=== PATIENT | female | born 1990 | race Caucasian/White ===

== ENCOUNTER 2023-08-20 09:39 | Outpatient (RCR) | payer OTHER, SELFPAY | END 2023-09-04 15:21 | disposition home or self-care (01) | LOC: PT 09:39 | PROVIDERS: PCP Family Medicine; Visit Provider Family Medicine | DX: M54.2 Cervicalgia (principal); M25.519 Pain in unspecified shoulder | CPT/HCPCS: 97010; 97014; 97035; 97140; 97162 ==

== ENCOUNTER 2023-10-15 14:56 | Outpatient (REF) | payer OTHER, SELFPAY ==
--- OUTSIDE RECORDS SUMMARY | 2023-11-20 15:05 | XMS_ITS | CCD ---
Author Organization [facility] ion [facility] Care Team Providers Care Mail Order Clerk Name Role Phone KESHIA ROWLAND Admitting Unavailable KESHIA ROWLAND Attending Unavailable ZICHRISTINE, DR TOSIN Hernandez Consulting Unavailable NADERER, DR OH Fam Primary Care Unavailable KESHIA ROWLAND Consulting Unavailable GALEN, DR OH Fam Attending Unavailable NADERER, DR OH Fam Admitting Unavailable NADERER, DR OH Fam Primary Care Unavailable NADERER, DR OH Fam Consulting Unavailable Oh Aaron MD Primary Care Provider ALFREDO EVANGELISTA Attending Unavailable NADEREDavid, [place] Referring Unavailable NADERER, OH Primary Care Unavailable ALFREDO EVANGELISTA Attending Unavailable ALFREDO EVANGELISTA Referring Unavailable NADERER, OH Primary Care Unavailable ALFREDO EVANGELISTA Referring Unavailable NADEREDavid, [place] Primary Care Unavailable JARODEREDavid, [place] Attending Unavailable NADERER, OH Attending Unavailable NADERER, OH Attending Unavailable NADERER, [place] Attending Unavailable DO Dae Montesinos Primary Care Provider MD Oh Aaron Attending Provider [phone] Dae Montesinos Primary Care Unavailable Oh Aaron Attending Unavailable NadereOh hernandez Admitting Unavailable NADERER, [place] Referring Unavailable NADEREDavid, [place] Primary Care Unavailable ALFREDO EVANGELISTA Referring Unavailable NADERER, OH Primary Care Unavailable NADEREDavid, [place] Referring Unavailable OH AARON Primary Care Unavailable Allergies Allergy Classification Reported Allergen(s) Allergy Type Date of Onset Reaction(s) Facility (4 sources) Penicillins; Translations: [PENICILLINS] Drug allergy (disorder) 4 [facility] (1 source) strawberry allergenic extract Drug Allergy 4 [facility] (1 source) Penicillins Propensity to adverse reactions 4 Hives [facility] (3 sources) Adhesive agent; Translations: [ADHESIVE] Propensity to adverse reactions to drug (disorder) 0 [facility] Medications Current Medications Medication Drug Class(es) Dates Sig (Normalized) Sig (Original) [id number] 200 actuat albuterol 0.09 mg/actuat metered dose inhaler (1 source) beta2-Adrenergi c Agonist take 2 puff(s) by inhalation every four hours for wheezing albuterol HFA 90 mcg/act inhaler Inhale 2 puffs every 4 (four) hours if needed for wheezing 0 Active amphetamine aspartate 7.5 mg / amphetamine sulfate 7.5 mg / dextroamphetamine saccharate 7.5 mg / dextroamphetamine sulfate 7.5 mg oral tablet (2 sources) Central Nervous System Stimulant Start: 03-27-2023 End: 04-01-2023 take 1 tablet by mouth in the morning amphetamine-dextroam phetamine (Adderall) 30 MG tablet Indications: ADD (attention deficit disorder) without hyperactivity Take 1 tablet (30 mg) by mouth in the morning and 1 tablet (30 mg) before bedtime. 60 tablet 0 04/01/2023 Active cholecalciferol 0.05 mg oral tablet (1 source) Vitamin D take 1 tablet by mouth in the morning cholecalciferol (Vitamin D-3) 50 MCG (1999 UT) tablet Take 2,000 Units by mouth in the morning. 0 Active Problems Active Problems Problem Classification Problem Date Documented Da te Episodic/Chronic Disorders usually diagnosed in infancy, childhood, or adolescence (2 sources) Attention deficit hyperactivity disorder, predominantly inattentive type; Translations: [Other specified behavioral and emotional disorders with onset usually occurring in childhood and adolescence] Onset: 01-31-2023 04-01-2023 Chronic Nonmalignant breast conditions (2 sources) Unspecified lump in the left breast, upper inner quadrant; Translations: [Unspecified lump in the left breast, upper inner quadrant] Onset: 09-04-2023 Episodic Nutritional deficiencies (1 source) Vitamin D deficiency, unspecified; Translations: [VITAMIN D DEFICIENCY UNSPECIFIED] Onset: 07-20-2021 Chronic Other gastrointestinal disorders (4 sources) Constipation, unspecified; Translations: [CONSTIPATION UNSPECIFIED] Onset: 05-09-2022 Episodic Residual codes; unclassified (1 source) Decreased libido; Translations: [Decreased libido] Onset: 09-04-2023 Episodic Screening and history of mental health and substance abuse codes (1 source) Encounter for screening for depression; Translations: [Encounter for screening for depression] Onset: 09-04-2023 Episodic Spondylosis; intervertebral disc disorders; other back problems (1 source) Other cervical disc degeneration, unspecified cervical region; Translations: [Other cervical disc degeneration, unspecified cervical region] Onset: 11-05-2023 Chronic Unclassified (1 source) Gynecologic Exam Onset: 09-04-2023 Past or Other Problems Problem Classification Problem Date Documented Da te Episodic/Chronic Spondylosis; intervertebral disc disorders; other back problems (1 source) Cervicalgia; Translations: [Cervicalgia] Onset: 07-15-2023 Episodic Results Test Name Value Interpretation Reference Range Facility MR CERVICAL SPINE WO CONTon 11-05-2023 MR CERVICAL SPINE WO CONT MR CERVICAL SPINE WO CONT HISTORY: A 33-year-old female with the history of the disc degenerative disease of the cervical spine. Complaining of the neck pain and right arm pain. TECHNIQUE: Multiplanar and multisequence MRI examination of the cervical spine is performed. COMPARISON: Comparison is made with the cervical spine radiographs of the 07/15/2023. FINDINGS: Vertebral heights are normal. There are disc degenerative disease in the cervical spine with severe changes at C6-C7. There is loss of normal cervical lordosis without evidence of spondylolisthesis. No acute bony pathology is identified. At C2-C3, there is no evidence of disc herniation, spinal stenosis or narrowing of the neural foramina. At C3-C4 and C4-C5, there is no evidence of disc herniation. Mild degree of spinal stenosis is seen. Neural foramina are patent. At C5-C6, there is a disc bulging with the moderate degree of spinal stenosis. Neural foramina are minimally narrowed. At C6-C7, there is a disc protrusion in the midline and left to the midline with compression of the thecal sac and cord compression. There is a severe degree of spinal stenosis. Neural foramina are narrowed from degenerative arthritis. At C7-T1, there is no evidence of disc herniation. No cord compression is seen. Neural foramina are patent. No signal abnormality seen within the substance of the spinal cord to suggest cord contusion or cord edema. IMPRESSION: * There is a disc protrusion at C6-C7 in the midline and left to the midline with compression of the spinal cord. There is a severe degree of spinal stenosis and narrowing of the neural foramina. * Disc bulging is seen at C5-C6 with significant spinal stenosis and narrowing of the neural foramina. * Cervical spinal canal is narrowed on the congenital and acquired basis. * No evidence of cord contusion, cord edema or myelomalacia. Finalized by River Chauhan MD on 11/05/2023 1:02 PM Normal [facility] Praveen 10-15-2023 L Specimen: [id number] Received: 10/17/23 Status: LISETH Delgadillo Num: [id number] Spec Type: Surgical Subm Dr: Oh Aaron MD Tissues: A Skin-Other than Cyst, tag, debridement or plastic repair (LEFT SHOULDER) Procedures: HE, Gross/Micro L4 Age/ Patient Sex Location Account Attending Physician Johnna Smith 33/F LABELL [id number] Oh Aaron MD SPEC NUM: [id number] RECD: 10/17/23 STATUS: LISETH DELGADILLO NUM: [id number] SHA: 10/15/[address]: Oh Aaron MD ENTERED: 10/17/[address] [facility] [address]: Sim Florentino SPEC TYPE: Surgical DEPT: MARIYA JAMISON ENTERED BY: [id number] RECV BY: [id number] ORDERED: HE, Gross/Micro L4 ORDERED: HE, Gross/Micro L4 Pathological Diagnosis Skin lesion, left shoulder, biopsy: Basal cell carcinoma, superficial type. Margins are clear. Clinical Information Not given Gross Description The specimen was received in formalin with the patient's name and left shoulder shave biopsy is a parsons-brown raised shave biopsy measuring 0.6 x 0.6 x 0.3 cm. The resection margin is inked black. The specimen is trisected and entirely submitted in cassette A1. -------- -------- Specimen: [id number] Received: 10/17/23 Status: LISETH Delgadillo Num: [id number] Spec Type: Surgical Subm Dr: Oh Aaron MD Tissues: A Skin-Other than Cyst, tag, debridement or plastic repair (LEFT SHOULDER) Procedures: Gurinder HOLLIDAY/Kathi L4 -------- Patient: Johnna Smith [id number] (Continued) -------- Signed (signature on file) Fadi Avilez MD 10/21/23 1419 Normal [facility] MAMM DIAGNOSTIC BILATERAL W CADon 09-11-2023 MAMM DIAGNOSTIC BILATERAL W CAD MAMM DIAGNOSTIC BILATERAL W CAD EXAM: MAMM DIAGNOSTIC BILATERAL W CAD, US BREAST LT LIMITED, 09/11/2023 9:19 AM CLINICAL INDICATIONS: Mass of upper inner quadrant of left breast, Patient presents for evaluation of the palpable lump of the left breast. COMPARISON: None TECHNIQUE: Bilateral digital tomosynthesis MLO and CC views of the breasts were obtained, with creation of synthetic 2D views. Computer aided detection was utilized. FINDINGS: The breasts are heterogeneously dense, which may obscure small masses. A radiopaque marker is placed over the area of palpable concern. There is no underlying mammographic abnormality. Targeted ultrasound will be performed at this location. There are no suspicious masses, calcifications, or areas of architectural distortions. Left Breast Ultrasound, Limited TECHNIQUE: Multiple real-time sherman-scale images of the left breast in the 12 o'clock axis were performed. Color Doppler was utilized to assess vascular flow. FINDINGS: There is no focal mass, architectural distortion or abnormal vascularity visualized. No focal abnormality to correspond with area of palpable concern. COMBINED IMPRESSION: No mammographic evidence of malignancy. BI-RADS: BI-RADS 2 - Benign Recommendation: Routine screening mammogram at age of 40 . Patient may return if there are new symptoms or areas of palpable concern. Patient was given the results before leaving the department. Finalized by Marily Guidry MD on 09/11/2023 10:23 AM 2 c MAMM AT 40 Normal [facility] US BREAST LT LIMITEDon 09-10 US BREAST LT LIMITED US BREAST LT LIMITE D EXAM: MAMM DIAGNOSTIC BILATERAL W CAD, US BREAST LT LIMITED, 09/11/2023 9:19 AM CLINICAL INDICATIONS: Mass of upper inner quadrant of left breast, Patient presents for evaluation of the palpable lump of the left breast. COMPARISON: None TECHNIQUE: Bilateral digital tomosynthesis MLO and CC views of the breasts were obtained, with creation of synthetic 2D views. Computer aided detection was utilized. FINDINGS: The breasts are heterogeneously dense, which may obscure small masses. A radiopaque marker is placed over the area of palpable concern. There is no underlying mammographic abnormality. Targeted ultrasound will be performed at this location. There are no suspicious masses, calcifications, or areas of architectural distortions. Left Breast Ultrasound, Limited TECHNIQUE: Multiple real-time sherman-scale images of the left breast in the 12 o'clock axis were performed. Color Doppler was utilized to assess vascular flow. FINDINGS: There is no focal mass, architectural distortion or abnormal vascularity visualized. No focal abnormality to correspond with area of palpable concern. COMBINED IMPRESSION: No mammographic evidence of malignancy. BI-RADS: BI-RADS 2 - Benign Recommendation: Routine screening mammogram at age of 40 . Patient may return if there are new symptoms or areas of palpable concern. Patient was given the results before leaving the department. Finalized by Marily Guidry MD on 09/11/2023 10:23 AM 2 c MAMM AT 40 Normal [facility] CHLAMYDIA/GC PCR, FLon 09-03 CHLAMYDIA/GC PCR, FL CHLAMYDIA PCR, FL Negative (qualifier value) Chlamydia trachomatis not detected by nucleic acid amplification. This does not exclude the possibility of infection because results are dependent on adequate specimen collection. GONORRHOEAE PCR, FL Negative (qualifier value) Neisseria gonorrhoeae not detected by nucleic acid amplification. This does not exclude the possibility of infection because results are dependent on adequate specimen collection. Normal [facility] Comment on above: Performed By: #### C [facility] #### [facility] ([id number]) [address] [place] [address], [address] [place] [address] Cytologyon 09-04-2023 Cytology Normal [facility] Comment on above: Result Comment: [facility] [address] [place] [address] Gynecologic Cytology Consultation Patient Name:JOHNNA SMITH:1990 (Age: 33)Gender:FTaken:4Reported:4Physician(s):Vic Evangelista, C.N.PAlfredo ([phone])Copy To: Rec. #:[id number]: #[id number] Final Cytologic Interpretation ThinPrep Pap Test (Cervical): Satisfactory for evaluation. A transformation zone component is present. NEGATIVE FOR INTRAEPITHELIAL LESION OR MALIGNANCY. j/09/11/2023 Interpretation performed at [facility], [address] [place] [address], License number: [id number]. Electronically Signed Out By CHRISTOPHER Marroquin(ASCP) Date of Last Menstrual Period: 08/20/23 Other Clinical Conditions: Z01.419 Milk And Cream Grader exam wo/abn findings Source of Specimen ThinPrep Pap Test (Cervical) Thin Prep Pap (PEAR PICKER) Fee Code(s): G0145 The Pap test is a screening test with an inherent, but low, probability of error. The Pap test is primarily effective for the diagnosis and prevention of squamous cell carcinoma. Regular screening is critical for prevention. ThinPrep liquid-based slides, which meet the Ophthalmic Medical Technologist criteria for automated screening, have been screened by the [employer] System (as of 11/10/06) along with an additional manual rescreening by a planning manager and, if indicated, by a pathologist. HIGH RISK HPV W/GENOon 09-03 HPV 31+33+35+39+45+51+52+ 56+58+59+66+68 DNA CASSIE+probe Ql (Cvx) HPV SPECIMEN TYPE ThinPrep HPV 16 Negative (qualifier value) HPV 18 Negative (qualifier value) OTHER HIGH RISK HPV Negative (qualifier value) HPV types 31,33,35,39,45,52,56, 58,59,66 and 68 DNA were undetectable. Normal [facility] Comment on above: Performed By: #### 7 1431-1 #### [facility] ([id number]) [address], [place] [address] [facility] ([id number]) [address], [address] [place] [address] XR SPINE CERVICAL 3 VWS OR L ESSon 07-17-2023 XR SPINE CERVICAL 3 VWS OR LESS XR SPINE CERVICAL 3 VWS OR LESS History: Neck pain Exam/Technique: 3 views cervical spine Comparison: No relevant prior studies available. Findings: Vertebral body heights are well-preserved. Facet joints are well aligned. Paravertebral soft tissue is unremarkable. There is mild loss of disc height at C4 C5 5 and C6-C7. There is straightening of the normal cervical lordosis which could be function of patient position versus muscle spasm. IMPRESSION: Mild degenerative disease with no gross acute osseous injury Finalized by Kary Davenport MD on 07/17/2023 3:17 AM Normal [facility] XR ABD FLAT UP_PA Fabiola 05-09 XR ABD FLAT UP_PA CH EXAMINATION: XR ABD FLAT UP_PA CH HISTORY: CONSTIPATION, UNSPECIFIED COMPARISON: XR chest 08/12/2020 FINDINGS: LUNGS: No infiltrate, pneumothorax, or pleural effusion. MEDIASTINUM: No abnormal widening. BOWEL GAS PATTERN: Non-obstructed. No abnormal dilation or suspicious fluid levels. FREE AIR: None. CALCIFICATIONS: None significant. BONES: No fracture or visible bone lesion. OTHER: Negative. IMPRESSION: 1. No acute cardiopulmonary process. 2. Normal bowel gas pattern. Moderate stool burden. Electronically authenticated by: TOSIN SAENZ Date: 2022-05-09 12:26 Normal [facility] CBC AUTO DIFFon 07-18-2021 BASO # 0.0 103/ul Normal 0.0-0.1 [facility] Comment on above: Performed By: #### C BC #### [facility] [address] [address] [address] Rupesh Mcclure Basophils/100 WBC (Bld) 0.6 % Normal 0.2-2.0 [facility] Comment on above: Performed By: #### C BC #### [facility] [address] [place] [address] Dr. Rupesh Mcclure EO # 0.1 103/ul Normal 0.0-0.7 [facility] Comment on above: Performed By: #### C BC #### [facility] [address] [place] [address] Dr. Rupesh Mcclure Eosinophils/100 WBC (Bld) 0.8 % Critically low 0.9-7.0 [facility] Comment on above: Performed By: #### C BC #### [facility] [address] [place] [address] Dr. Rupesh Mcclure Erythrocyte distribution width (RBC) [Ratio] 13.7 % Normal 11.0-15.0 [facility] Comment on above: Performed By: #### C BC #### [facility] [address] [place] [address] Dr. Rupesh Mcclure Hematocrit (Bld) [Volume fraction] 42.3 % Normal 36.0-48.0 [facility] Comment on above: Performed By: #### C BC #### [facility] [address] [place] [address] Dr. Rupesh Mcclure Hemoglobin (Bld) [Mass/Vol] 13.5 g/dL Normal 12.0-16.0 [facility] Comment on above: Performed By: #### C BC #### [facility] [address] [place] [address] Dr. Rupesh Mcclure IG # 0.02 10e3/ul Normal 0.00-0.03 [facility] Comment on above: Performed By: #### C BC #### [facility] [address] [place] [address] Dr. Rupesh Mcclure IG % 0.3 % Normal 0.0-0.5 [facility] Comment on above: Performed By: #### C BC #### [facility] [address] [place] [address] Dr. Rupesh Mcclure LYMPH # 2.4 103/ul Normal 1.2-3.8 [facility] Comment on above: Performed By: #### C BC #### [facility] [address] [place] [address] Dr. Rupesh Mcclure Lymphocytes/100 WBC (Bld) 34.6 % Normal 20.5-60.0 [facility] Comment on above: Performed By: #### C BC #### [facility] [address] [place] [address] Dr. Rupesh Mcclure MANUAL DIFF REQ NO Normal [facility] Comment on above: Performed By: #### C BC #### [facility] [address] [place] [address] Dr. Rupesh Mcclure MCH (RBC) [Entitic mass] 28.6 pg Normal 26.7-34.0 [facility] Comment on above: Performed By: #### C BC #### [facility] [address] [place] [address] Dr. Rupesh Mcclure MCHC (RBC) [Mass/Vol] 31.9 g/dL Normal 29.9-35.2 [facility] Comment on above: Performed By: #### C BC #### [facility] [address] [place] [address] Dr. Rupesh Mcculre MCV (RBC) [Entitic vol] 89.6 fL Normal 81.0-99.0 [facility] Comment on above: Performed By: #### C BC #### [facility] [address] [place] [address] Dr. Rupesh Mcclure MONO # 0.4 103/ul Normal 0.3-0.8 [facility] Comment on above: Performed By: #### C BC #### [facility] [address] [place] [address] Dr. Rupesh Mcclure Monocytes/100 WBC (Bld) 5.9 % Normal 1.7-12.0 [facility] Comment on above: Performed By: #### C BC #### [facility] [address] [place] [address] Dr. Rupesh Mcclure NEUT # 4.1 103/ul Normal 1.4-6.5 [facility] Comment on above: Performed By: #### C BC #### [facility] [address] [place] [address] Dr. Rupesh Mcclure Neutrophils/100 WBC (Bld) 57.8 % Normal 43.0-75.0 [facility] Comment on above: Performed By: #### C BC #### [facility] [address] [place] [address] Dr. Rupesh Mcclure Platelet mean volume (Bld) [Entitic vol] 12.9 fL Normal 9.5-13.5 [facility] Comment on above: Performed By: #### C BC #### [facility] [address] [place] [address] Dr. Rupesh Mcclure PLT 192 103/ul Normal 150-450 [facility] Comment on above: Performed By: #### C BC #### [facility] [address] [place] [address] Dr. Rupesh Mcclure RBC 4.72 106/ul Normal 4.20-5.40 [facility] Comment on above: Performed By: #### C BC #### [facility] [address] [place] [address] Dr. Rupesh Mcclure WBC 7.1 103/ul Normal 4.0-11.0 [facility] Comment on above: Performed By: #### C BC #### [facility] [address] [place] [address] Dr. Rupesh Mcclure GLYCOHEMOGLOBIN A1Con 2021 ADA RECOMMENDATION SEE BELOW Normal [facility] Comment on above: Result Comment: ADA RECOMMENDED LIMIT 4.0 - 6.0 ADA THERAPEUTIC TARGET < 7.0 ACTION SUGGESTED > 7.0 Performed By: #### A 1C #### [facility] [address] [place] [address] Dr. Rupesh Mcclure Glucose [Mass/Vol] 103 mg/dL Normal [facility] Comment on above: Performed By: #### A 1C #### [facility] [address] [place] [address] Dr. Rupesh Mcclure HbA1c (Bld) [Mass fraction] 5.2 % Normal 4.5-6.2 [facility] Comment on above: Performed By: #### A 1C #### [facility] [address] [place] [address] Dr. Rupesh Mcclure LIPID PROFILEon 07-18-2021 CHOL-HDL RATIO NORM SEE BELOW Normal [facility] Comment on above: Result Comment: 3.3 - 4.4 LOW RISK 4.4 - 7.1 AVERAGE RISK 7.1 - 11.0 MODERATE RISK >11.0 HIGH RISK Performed By: #### L IPID, BMP, LIVER, TSH #### [facility] [address] [address] [address] Rupesh Mcclure Cholesterol [Mass/Vol] 119 mg/dL Normal <=200 [facility] Comment on above: Performed By: #### L IPID, BMP, LIVER, TSH #### [facility] [address] [address] [address] Rupesh Mcclure Cholesterol in HDL [Mass/Vol] 48 mg/dL Normal 40-60 [facility] Comment on above: Performed By: #### L IPID, BMP, LIVER, TSH #### [facility] [address] [address] [address] Rupesh Mcclure Cholesterol in LDL [Mass/Vol] 60.4 mg/dL Normal [facility] Comment on above: Performed By: #### L IPID, BMP, LIVER, TSH #### [facility] [address] [address] [address] Rupesh Mcclure Cholesterol.total/Cho lesterol in HDL [Mass ratio] 2.5 {ratio} Normal [facility] Comment on above: Performed By: #### L IPID, BMP, LIVER, TSH #### [facility] [address] [address] [address] Rupesh Mcclure HDL NORMAL > or = 60 mg/dl - LO W CARDIOVASCULAR RISK <40 mg/dl - HIGH CARDIOVASCULAR RISK Normal [facility] Comment on above: Performed By: #### L IPID, BMP, LIVER, TSH #### [facility] [address] [address] [address] Rupesh Mcclure LDL CALC NORMAL SEE BELOW Normal [facility] Comment on above: Result Comment: <100 mg/dl OPTIMAL 100 - 129 mg/dl NEAR OR ABOVE OPTIMAL 130 - 159 mg/dl BORDERLINE HIGH 160 - 189 mg/dl HIGH >190 mg/dl VERY HIGH Performed By: #### L IPID, BMP, LIVER, TSH #### [facility] [address] [address] [address] Rupesh Mcclure Triglyceride [Mass/Vol] 53 mg/dL Normal <=150 [facility] Comment on above: Performed By: #### L IPID, BMP, LIVER, TSH #### [facility] [address] [address] [address] Rupesh Mcclure VLDL CALC 10.6 mg/dL Normal [facility] Comment on above: Performed By: #### L IPID, BMP, LIVER, TSH #### [facility] [address] [address] [address] Rupesh Mcclure LIVER PROFILEon 07-18-2021 Albumin [Mass/Vol] 3.7 g/dL Normal 3.4-5.0 [facility] Comment on above: Performed By: #### L IPID, BMP, LIVER, TSH #### [facility] [address] [address] [address] Rupesh Mcclure Albumin/Globulin [Mass ratio] 1.2 {ratio} Normal [facility] Comment on above: Performed By: #### L IPID, BMP, LIVER, TSH #### [facility] [address] [place] [address] Dr. Rupesh Mcclure ALP [Catalytic activity/Vol] 65 U/L Normal 46-116 [facility] Comment on above: Performed By: #### L IPID, BMP, LIVER, TSH #### [facility] [address] [address] [address] Rupesh Mcclure ALT [Catalytic activity/Vol] 23 U/L Normal 14-59 [facility] Comment on above: Performed By: #### L IPID, BMP, LIVER, TSH #### [facility] [address] [address] [address] Rupesh Mcclure AST [Catalytic activity/Vol] 17 U/L Normal 15-37 [facility] Comment on above: Performed By: #### L IPID, BMP, LIVER, TSH #### [facility] [address] [address] [address] Rupesh Mcclure BILI, CONJUGATED 0.1 mg/dL Normal 0.0-0.2 [facility] Comment on above: Performed By: #### L IPID, BMP, LIVER, TSH #### [facility] [address] [place] [address] Dr. Rupesh Mcclure Bilirubin [Mass/Vol] 0.5 mg/dL Normal 0.2-1.0 [facility] Comment on above: Performed By: #### L IPID, BMP, LIVER, TSH #### [facility] [address] [place] [address] Dr. Rupesh Mcclure Globulin (S) [Mass/Vol] 3.0 g/dL Normal [facility] Comment on above: Performed By: #### L IPID, BMP, LIVER, TSH #### [facility] [address] [place] [address] Dr. Rupesh Mcclure Protein [Mass/Vol] 6.7 g/dL Normal 6.4-8.[address] [facility] Comment on above: Performed By: #### L IPID, BMP, LIVER, TSH #### [facility] [address] [place] [address] Dr. Rupesh Mcclure PROF CHEM 8 (BAS METB)on Anion gap [Moles/Vol] 11.1 mmol/L Normal [facility] Comment on above: Performed By: #### L IPID, BMP, LIVER, TSH #### [facility] [address] [place] [address] Dr. Rupesh Mcclure Calcium [Mass/Vol] 8.6 mg/dL Normal 8.5-10.[address] [facility] Comment on above: Performed By: #### L IPID, BMP, LIVER, TSH #### [facility] [address] [place] [address] Dr. Rupesh Mcclure Chloride [Moles/Vol] 106 mmol/L Normal 98-107 [facility] Comment on above: Performed By: #### L IPID, BMP, LIVER, TSH #### [facility] [address] [place] [address] Dr. Rupesh Mcclure CO2 [Moles/Vol] 29.1 mmol/L Normal 21.0-32.[address] [facility] Comment on above: Performed By: #### L IPID, BMP, LIVER, TSH #### [facility] [address] [address] [address] Rupesh Mcclure Creatinine [Mass/Vol] 0.68 mg/dL Normal 0.55-1.02 [facility] Comment on above: Performed By: #### L IPID, BMP, LIVER, TSH #### [facility] [address] [address] [address] Rupesh Mcclure EGFR-AF SAO TOMEAN >60 Normal >=[address] [facility] Comment on above: Performed By: #### L IPID, BMP, LIVER, TSH #### [facility] [address] [address] [address] Rupesh Mcclure EGFR-NON AF SAO TOMEAN >60 Normal >=60 [facility] Comment on above: Performed By: #### L IPID, BMP, LIVER, TSH #### [facility] [address] [address] [address] Rupesh Mcclure Glucose [Mass/Vol] 89 mg/dL Normal 74-[address] [facility] Comment on above: Performed By: #### L IPID, BMP, LIVER, TSH #### [facility] [address] [address] [address] Rupesh Mcclure Potassium [Moles/Vol] 4.2 mmol/L Normal 3.5-5.1 [facility] Comment on above: Performed By: #### L IPID, BMP, LIVER, TSH #### [facility] [address] [address] [address] Rupesh Mcclure Sodium [Moles/Vol] 142 mmol/L Normal 136-[address] [facility] Comment on above: Performed By: #### L IPID, BMP, LIVER, TSH #### [facility] [address] [address] [address] Rupesh Mcclure Urea nitrogen [Mass/Vol] 12.0 mg/dL Normal 7.0-18.0 [facility] Comment on above: Performed By: #### L IPID, BMP, LIVER, TSH #### [facility] [address] [place] [address] Dr. Rupesh Mcclure Urea nitrogen/Creatinine [Mass ratio] 17.6 mg/mg Normal [facility] Comment on above: Performed By: #### L IPID, BMP, LIVER, TSH #### [facility] [address] [place] [address] Dr. Rupesh Mcclure TSHon 07-18-2021 TSH 1.012 uIU/mL Normal 0.358-3.740 [facility] Comment on above: Performed By: #### L IPID, BMP, LIVER, TSH #### [facility] [address] [place] [address] Dr. Rupesh Mcclure TSH RANGE SEE BELOW Normal [facility] Comment on above: Result Comment: <0.3 4 UIU/ml HYPERTHYROID 0.34-5.60 UIU/ml EUTHYROID >5.60 UIU/ml HYPOTHYROID Performed By: #### L IPID, BMP, LIVER, TSH #### [facility] [address] [place] [address] Dr. Rupesh Mcclure VITAMIN D 25 OHon 07-18-2021 VIT D 25-OH 30.5 ng/mL Normal [facility] Comment on above: Performed By: #### V ITAD #### [facility] [address] [place] [address] Dr. Rupesh Mcclure VIT D RANGES SEE BELOW Normal [facility] Comment on above: Result Comment: <20 ng/mL Vit D deficient 20 - <30 ng/mL Vit D insufficient 30 - 100 ng/mL Vit D sufficient >100 ng/mL Potential Toxicity Performed By: #### V ITAD #### [facility] [address] [place] [address] Dr. Rupesh Mcclure Consent Formson 10-12-2020 Consent Forms [id number] .00OTGTIFF Normal [facility] - Toxicology Resultson 0 10-12-2020 Lab - Toxicology Results [id number] .00OTGTIFF [facility] Lab - Toxicology Resultson 0 10-09-2020 Lab - Toxicology Results [id number] .00OTGTIFF [facility] Triage Panel 10on 10-09-2020 Drug Screen Complete Collected [facility] Comment on above: Performed By: #### 2 [id number] #### [facility] (DEFAULT) [address] [place] [address] ED Clinical Summaryon 2020 ED Clinical Summary [facility] ? Urgent Care [address] [place] [id number] Clinical Summary PERSON INFORMATION Name: JOHNNA SMITH Age: 30 Years Sex: FEMALE : 1990 MRN: Acct#: Visit Reason: Medical screening exam; ANA SAMANO PHYSCIMICHI Arrival: 10/06/2020 15:26:54 Discharge: 10/06/2020 16:26:00 LOS: 000 01:00 Check In: 10/06/2020 15:26:54 Checkout: 10/06/2020 16:26:00 Address: [address] [place] [address] PCP: [place] AARON PROVIDER INFORMATION Provider Role Assigned Unassigned Reed Morse PA-C ED PA 10/06/2020 15:35:02 Leta Jacobsen LIP READING TEACHER Nurse 10/06/2020 15:38:12 VITALS INFORMATION Vital Sign Triage Latest Temperature Tympanic Temperature Temporal Artery Pulse Rate O2 Sat 99 % 99 % Respiratory Rate Blood Pressure /97 mmHg /97 mmHg MEDICAL INFORMATION Medications Given: Allergy Information: No Known Medication Allergies PHYSICIAN DOCUMENTATION DISCHARGE INFORMATION: Discharge Disposition: Home Discharge Location: Home PATIENT EDUCATION INFORMATION Instructions: Follow-Up: DIAGNOSIS: 1:Encounter for fitness for duty examination Patient Understands: Comment: [facility] ED Patient Summaryon 021 ED Patient Summary [facility] ? Urgent Care [address] [place] [id number] PATIENT DISCHARGE INSTRUCTIONS Patient Information Name: JOHNNA SMITH Age: 30 Years Date of : 1990 [facility]: [id number] Reason For Visit: Medical screening exam; ANA RANDHAWA Arrival Time: 10/06/2020 15:26:54 Primary Care Physician: [place] AARON Attending Physician: Reed Morse PA-C Comment: Patient Education Medication Information: The exam and treatment you received today in the [facility] Emergency Department were for an urgent problem and are not intended as complete care. It is important for you to follow up with a doctor, nurse practitioner, or physician?s special education educational assistant for ongoing care. If your symptoms become worse or you do not improve as expected and you are unable to reach your usual health care provider, you should return to the Emergency Department, we are available 24 hours a day. For those patients who have received Radiology results, the interpretation of your X-ray as given to you by our Emergency Department physician is only a preliminary report. The Radiologist will review your films and if there is a change in the diagnosis you will be notified by phone. Please make sure you have provided a working phone number so we can reach you if necessary. In the event that you had a lab culture while you were a patient in the Emergency Department, you will be notified by phone if there is a need to change your antibiotic. Please make sure you have provided a working phone number so we can reach you if necessary. [facility] Emergency Department has provided you with a complete list of medications post discharge. Please inform your pump attendant/provider of your visit and for further instruction on these medications. Any specific questions regarding your chronic medications and dosages should be discussed with your primary care physician(s) and/or pharmacist. Medications to Continue That Have Not Changed Other Medications amphetamine-dextroamp hetamine (amphetamine-dextroam phetamine 30 mg oral tablet) 2 tab(s) Oral every day. Visit Information Visit Diagnosis: Diagnoses This Visit Encounter for fitness for duty examination (Z02.89) Medical screening exam ([id number]) If you received any narcotics, sedation, or any other medication that causes drowsiness for the next 24 hours, unless otherwise directed: ? Do not drive a car. ? Do not operate machinery such as power tools, lawn mowers, drills, sewing machines, or stoves ? Avoid alcoholic beverages and drugs for allergies, nerves, or sleep ? Do not make important personal or business decisions or sign any legal documents Reason for Visit: [employer] new hire physical Allergies: Substance Reaction Symptoms Type Comments No Known Medication Allergies Drug Vital Signs: Vitals and Measurements this Visit (last charted value for your 10/06/2020 visit) Vital Signs This Visit Temperature Oral: 36.8 DegC Peripheral Pulse Rate: 68 bpm Respiratory Rate: 14 br/min Systolic Blood Pressure: 135 mmHg Diastolic Blood Pressure: 97 mmHg SpO2: 99 % Oxygen Therapy: Room air Measurements This Visit Height: 154.94 cm Weight: 90.26 kg Body Mass Index: 37.6 kg/m2 Problems List: Problem Onset Comments No Problems found Major Tests and Procedures: The following procedures and tests were performed during your ED visit. Laboratory Triage Panel 10 Urine, Collected, RT collect, 10/06/20 15:44:00 EDT, by CEFERINO, Stop date 10/06/20 15:44:00 EDT, Lab Collect, Urine Radiology Cardiology Viruses or Bacteria What?s got you sick? Antibiotics only treat bacterial infections. Viral illnesses cannot be treated with antibiotics. When an antibiotic is not prescribed, ask your healthcare professional for tips on how to relieve symptoms and feel better. Usual Cause Illness Viruses Bacteria Antibiotic Needed Cold/Runny Nose NO Bronchitis/Chest Cold (in otherwise healthy children and adults) NO Whooping Cough Yes Flu NO Strep Throat Yes Sore Throat (except strep) NO Fluid in the middle ear (otitis media with effusion) NO Urinary Tract Infection Yes Antibiotics Aren?t Always the Answer www.cdc.gov/getsmart GET SMART Know When Antibiotics Work U.S. Department of Health and Human Services Centers for Disease Control and Prevention October 2013 Normal [facility] Encounters Encounter Date Encounter Type Care Provider Facility Start: 11-05-2023 End: 11-05-2023 ambulatory [facility] Start: 10-15-2023 End: 10-15-2023 ambulatory DO Dae Montesinos Work Phone: [facility] Work Phone: Start: 10-15-2023 End: 10-15-2023 Departed Referred DO Dae Montesinos Work Phone: [facility] Start: 10-15-2023 End: 10-15-2023 ambulatory [place] AARON Not Available Start: 09-25-2023 End: 09-25-2023 ambulatory [place] AARON Not Available Start: 09-11-2023 End: 09-11-2023 ambulatory [facility] Start: 09-04-2023 End: 09-04-2023 ambulatory [facility] Start: 09-04-2023 Encounter for gynecological examination (general) (routine) without abnormal findings [facility] Start: 09-04-2023 End: 09-04-2023 ambulatory [facility] Start: 09-04-2023 Encounter for gynecological examination (general) (routine) without abnormal findings OH AARON [facility] Start: 08-22-2023 End: 08-22-2023 ambulatory [place] AARON Not Available Start: 07-15-2023 End: 07-15-2023 ambulatory [place] AARON [facility] Start: 07-15-2023 End: 07-15-2023 ambulatory [place] AARON Not Available Start: 04-01-2023 Refill Oh Owens Work Phone: [facility] Comment on above: ADD (attention defic it disorder) without hyperactivity Start: 05-09-2022 End: 05-09-2022 ambulatory KESHIA ROWLAND Facility:[facility] Start: 07-20-2021 Encounter for genera l adult medical examination without abnormal findings DR OH AARON [facility] Start: 07-18-2021 End: 07-19-[address] OH AARON Facility:[facility] Start: 07-18-2021 End: 07-19-2021 Encounter for general adult medical examination without abnormal findings DR OH AARON Facility:[facility] Plan of Treatment Date Care Activity Detail Author Start: 04-02-2023 End: 04-02-2023 Patient encounter procedure 04/02/2023 1:45 PM EST Office Visit [facility] [address] [place] [address] Oh Aaron MD [address] [place] [address] [facility] Start: 2020 Screening for malign ant neoplasm of cervix [facility] Start: 08-31-2011 Screening for malign ant neoplasm of cervix Pap Smear [facility] Healthcare Payers Date Payer Category Payer Self-pay [id number] 2018 Medicaid [id number] 1990 Unknown [id number] 2.16.84 [id number] 1990 Unknown [id number] 2.16.84 [id number] 1990 Unknown [id number] 2.16.8 [id number] 1990 Unknown [id number] 2.16.8 40.1.394671.3.579.2.1286 1990 Unknown [id number] 2.16.8 40.1.380734.3.579.2.1286 1990 Unknown [id number] 2.16.84 0.1.968550.3.579.2.1259 1990 Unknown [id number] 2.16.84 0.1.486055.3.579.2.1259 1990 Unknown [id number] 2.16.84 0.1.064909.3.579.2.1259 1990 Unknown [id number] 2.16.84 0.1.097103.3.579.2.1259 1990 Unknown [id number] 2.16.8 40.1.062677.3.579.2.1286 1990 Unknown [id number] 2.16.8 40.1.395361.3.579.2.1286 1990 Unknown [id number] 2.16.8 [id number] 1959 Unknown [id number] Social History Date Type Detail Facility Start: 02-07-2016 End: 03-14-2023 Tobacco smoking status NHIS Never smoked tobacco [facility] Start: 03-14-2023 History of Social function [facility] Start: 03-14-2023 Tobacco use panel [facility] Start: 1990 Sex Assigned At Not on file [facility] Start: 1990 Sex Assigned At Female F [facility] History and physical note 10-12-2020 Note Date & Type Note Facility 10-12-2020 Note [id number] [facility] Clinical Note 10-06-2020 Note Date & Type Note Facility 10-06-2020 Note Patient Education Materials Foll ows: [facility] Evaluation note Note Date & Type Note Facility Evaluation note Diagnosis ADD (attention deficit disorder) without hyperactivity Attention deficit disorder without mention of hyperactivity documented in this encounter [facility] Healthcare Evaluation note Note Date & Type Note Facility Evaluation note No assessment information availa [facility] Work Phone: Summary Purpose Family History No Family History Records Found Relationship Condition Age at Onset Recorded Date/T margarita father Hyperlipidemia Unknown mother Malignant neoplasm Unknown Malignant neoplasm of breast Unknown Advance Directives No Advanced Directives Records FoundNo Advanced Directives Records FoundNo Advanced Directives Records FoundNo Advanced Directives Records FoundNo Advanced Directives Records FoundNo Advanced Directives Records FoundNo Advanced Directives Records Found Reason for Referral Specialty Diagnoses / Procedures Referred By Contac t Referred To Contact Diagnoses ADD (attention deficit disorder) without hyperactivity Oh Aaron MD [address] [place] [address] Referral ID Status Reason Start Date Expiration Date Visits Re quested Visits Authorized [id number] Closed 1 1 Additional Source Comments INFORMATION SOURCE (unrecogn ized section and content) DATE CREATED AUTHOR 10/14/2020 [facility] DATE CREATED AUTHOR AUTHOR'S ORGANIZ ATION 05/14/2022 [facility] DATE CREATED AUTHOR AUTHOR'S ORGANIZ ATION 09/10/2023 [facility] DATE CREATED AUTHOR AUTHOR'S ORGANIZ ATION 09/14/2023 [facility] DATE CREATED AUTHOR AUTHOR'S ORGANIZ ATION 10/16/2023 [facility] DATE CREATED AUTHOR AUTHOR'S ORGANIZ ATION 10/23/2023 [facility] DATE CREATED AUTHOR AUTHOR'S ORGANIZ ATION 11/07/2023 [facility] Reason for Visit (unrecogniz ed section and content) Reason Onset Date Comments Med Refill 04/01/2023 Care Teams (unrecognized sec tion and content) Mail Order Clerk Relationship Specialty Start Date End Date Oh Aaron MD [address] [place] [address] PCP - General Family Medicine 03/14/23 Team Status: Active Member Role Status Dates Dae Montesinos DO Primary Care Provider Active Team Status: Inactive Member Role Status Dates Dae Montesinos DO Primary Care Provider Active Sta rt: October 15, 2023 End: October 15, 2023 Oh Aaron MD Attending Provider Active Star t: October 15, 2023 End: October 15, 2023 Goals (unrecognized section and content) Goals may be documented in a n alternate section FOR RECORDS PERTAINING TO PATIENTS WHO ARE OR HAVE BEEN ENROLLED IN A CHEMICAL DEPENDENCY/SUBSTANCEABUSE PROGRAM, SOME INFORMATION MAY BE OMITTED. This clinical summary was aggregated from multiple sources. Caution should be exercised in using it in the provision of clinical care. This summary normalizes information from multiple sources, and as a consequence, information in this document may materially change the coding, format and clinical context of patient data. In addition, data may be omitted in some cases. CLINICAL DECISIONS SHOULD BE BASED ON THE PRIMARY CLINICAL RECORDS. [facility] [employer] [facility]. provides no warranty or guarantee of the accuracy or completeness of information in this document.
== END 2023-10-15 14:57 | disposition home or self-care (01) ==
LOC: LAB 14:56
PROVIDERS: PCP Family Medicine; Visit Provider Family Medicine
DX: C44.619 Basal cell carcinoma of skin of left upper limb, including shoulder (principal)

== ENCOUNTER 2024-05-24 13:00 | Emergency (ER) | payer OTHER, SELFPAY ==
[2024-05-24 13:04] VITALS: BP 157/98; PULSE 77; TEMP 36.7; O2SAT 98; BMI 32.5
--- NOTE | 2024-05-24 13:20 | ED.FALL1 ---
HPI HPI - Fall General Chief Complaint: Neck Pain/Injury Stated Complaint: FALL Time Seen by Provider: 05/24/24 13:14 Source: patient Mode of arrival: walk-in Limitations: language barrier History of Present Illness HPI Narrative: 33 year old female presents to the ED for right-sided neck pain s/p fall yesterday. Reports slipping on a wet floor. She struck her right shoulder against a bathroom stall wall. Denies LOC. She had cervical spine surgery 04/21/24. Denies N/T. Reports increased pain. She has medication for pain at home. She is here for imaging. Related Data Home Medications ?Medication ?Instructions ?Recorded ?Confirmed albuterol sulfate 90 mcg/actuation inhalation 05/24/24 aerosol inhaler bupropion HCl 150 mg 24 hr tablet, 300 mg PO DAILY 05/24/24 05/24/24 extended release buspirone 7.5 mg tablet 7.5 mg PO DAILY 05/24/24 05/24/24 cyclobenzaprine 10 mg tablet 10 mg PO Q12H PRN muscle spasm 05/24/24 05/24/24 Allergies Allergy/AdvReac Type Severity Reaction Status Date / Time No Known Drug Allergies Allergy Verified 05/24/24 13:03 Opioid HPI Opioid Management Most Recent Pain and Opioid Data: Last Pain Scale 9 05/24/24 13:32 05/24/24 Last MAR Pain Assessment 05/24/24 13:32 Review of Systems ROS Constitutional Denies: fever or chills Ears, nose, mouth, and throat Reports: neck pain; Denies: difficulty swallowing Cardiovascular Denies: chest pain Respiratory Denies: shortness of breath Musculoskeletal Reports: neck pain; Denies: back pain or extremity pain Neurological Denies: headache, numbness in extremities, weakness in extremities or dizziness PFSH PFSH Social History Little interest or pleasure in doing things: not at all Feeling down, depressed, or hopeless: not at all Exam Constitutional Vital Signs, click to edit/add: Last Vital Signs Temp 98.1 F 05/24/24 13:04 Pulse 77 05/24/24 13:04 Resp 18 05/24/24 13:04 BP 157/98 H 05/24/24 13:04 Pulse Ox 98 05/24/24 13:04 O2 Del Method Room Air 05/24/24 13:04 Common normals: no apparent distress and oriented x3 General appearance: cooperative Eye Common normals: conjunctivae normal and no scleral icterus Neck & C-Spine Common normals: supple Cervical spine: paracervical muscle tenderness and paracervical muscle spasm; no cervical spine tenderness Other: Healing surgical scar to right anterior neck. No erythema or drainage. Respiratory Common normals: normal respiratory effort Effort & inspection: able to speak in complete sentences and symmetric chest movement Cardio Common normals: regular rate Peripheral pulses: radial pulses present Neuro Common normals: oriented x3 and moves all extremities Sensorium/orientation: awake and alert Speech: speech normal Gait (neuro): normal gait Motor exam: strength 5/5 throughout Course Vital Signs Vital signs: Vital Signs Temperature 98.1 F 05/24/24 13:04 Pulse Rate 77 05/24/24 13:04 Respiratory Rate 18 05/24/24 13:04 Blood Pressure 157/98 H 05/24/24 13:04 Pulse Oximetry 98 05/24/24 13:04 Oxygen Delivery Method Room Air 05/24/24 13:04 Temperature 98.1 F 05/24/24 13:04 Pulse Rate 77 05/24/24 13:04 Respiratory Rate 18 05/24/24 13:04 Blood Pressure 157/98 H 05/24/24 13:04 Pulse Oximetry 98 05/24/24 13:04 Oxygen Delivery Method Room Air 05/24/24 13:04 MDM - Fall MDM Narrative Medical decision making narrative: X-ray of the cervical spine was reviewed by radiology. It showed no acute findings. Findings were discussed with the patient. She has medication for discomfort at home. Follow up with pcp and the surgeon for a recheck, further evaluation and treatment. Medical Records Attestation: I reviewed the patient's medical records. Imaging Data XR cervical spine: Attestation: I have reviewed the pertinent imaging results. Discharge Plan Discharge Chief Complaint: Neck Pain/Injury Clinical Impression: Strain of neck muscle, Acute neck pain Patient Disposition: Home, Self-Care Time of Disposition Decision: 15:12 Condition: Good Mode of Transportation: Private Vehicle Prescriptions / Home Meds: No Action albuterol sulfate 90 mcg/actuation HFA aerosol inhaler INHALATION bupropion HCl 150 mg tablet extended release 24 hr 300 mg PO DAILY buspirone 7.5 mg tablet 7.5 mg PO DAILY cyclobenzaprine 10 mg tablet 10 mg PO Q12H PRN (Reason: muscle spasm) Print Language: Luxembourgish Instructions: Cervical Strain (DC), Acute Neck Pain (ED) Additional Instructions: Return to the ER for worsening symptoms. Referrals: Oh Bishop MD [Primary Care Provider] - 1 week Discharge Date/Time: 05/24/24 15:20
[2024-05-24] MEDS: KETOROLAC TROMETHAMINE 60 MG/2 ML VIAL IM (13:32)
== END 2024-05-24 15:20 | disposition home or self-care (01) ==
PROVIDERS: Emergency Provider Emergency Medicine; PCP Family Medicine
DX: S16.1XXA Strain of muscle, fascia and tendon at neck level, initial encounter (principal); W01.0XXA Fall on same level from slipping, tripping and stumbling without subsequent striking against object, initial encounter; M54.2 Cervicalgia
CPT/HCPCS: 72040; 96372; 99284; J1885